=== PATIENT | female | born 1985 | race Caucasian/White ===

== ENCOUNTER 2017-04-21 10:57 | Emergency (ER) | payer OTHER ==
[2017-04-21 11:12] VITALS: BP 130/79; PULSE 71; TEMP 99.1; BMI 29.2
[2017-04-21 12:38] LABS: URINE APPEARANCE CLEAR; URINE BILIRUBIN NEGATIVE (NEGATIVE); URINE BLOOD 1+ (NEGATIVE); URINE COLOR YELLOW; URINE GLUCOSE (UA) NEGATIVE (NEGATIVE); URINE KETONE NEGATIVE (NEGATIVE); URINE LEUK ESTERASE 1+ (NEGATIVE); URINE NITRITE NEGATIVE (NEGATIVE); URINE PROTEIN NEGATIVE (NEGATIVE); URINE UROBILINOGEN NEGATIVE mg/dL (0.2-1.0)
[2017-04-21] MEDS ORDERED: KETOROLAC TROMETHAMINE 60 MG/2 ML VIAL IM ONE (12:40)
--- NOTE | 2017-04-21 12:40 | PDOC ---
History of Present Illness - General Chief Complaint: Back Pain Stated Complaint: BACK PAIN Time Seen by Provider: 04/21/17 12:13 History Source: Patient Exam Limitations: No Limitations - History of Present Illness Initial Comments: 04/21/17 12:35 31 yr female with 1-2 month slow back pain has physical therapy that pt states is not helping. Pt states pain to the right lower back radiates to buttock and down the leg . Pt denies saddle anesthesia, neg urine or bowel complaints. Pt takes motrin for pain with no relief. Occurred: reports: other Severity: reports: moderate Pain Location: reports: back Loss of Consciousness: no loss of consciousness Past History - Past Medical History Allergies/Adverse Reactions: Allergies Allergy/AdvReac Type Severity Reaction Status Date / Time No Known Allergies Allergy Verified 04/21/17 11:08 Home Medications: Ambulatory Orders Cyclobenzaprine HCl [Flexeril -] 5 mg PO TID PRN #21 tablet 04/21/17 Methylprednisolone [Medrol Dose Kory] 4 mg PO ASDIR #21 tablet 04/21/17 Asthma: No Cancer: No Cardiac Disorders: No CVA: No COPD: No Dementia: No Diabetes: No HTN: No Seizures: No Thyroid Disease: No Other medical history: DENIES. - Surgical History Abdominal Surgery: Yes - Psycho/Social/Smoking Cessation Hx Anxiety: No Suicidal Ideation: No Smoking History: Never smoked Hx Alcohol Use: No Drug/Substance Use Hx: No Substance Use Type: None *Physical Exam - Vital Signs Last Vital Signs Temp Pulse Resp BP Pulse Ox 99.1 F 71 19 130/79 99 04/21/17 11:09 04/21/17 11:09 04/21/17 11:09 04/21/17 11:09 04/21/17 11:09 - Physical Exam General Appearance: Yes: Nourished, Appropriately Dressed HEENT: positive: EOMI, OMER, Normal ENT Inspection, TMs Normal, Pharynx Normal Neck: positive: Supple Respiratory/Chest: positive: Lungs Clear, Normal Breath Sounds Cardiovascular: positive: Regular Rhythm, Regular Rate Musculoskeletal: positive: Normal Inspection, Decreased Range of Motion, Other ( right lower paraspinal soft tissue tender reproduced with movement and bending , neg vetebral tenderness). negative: CVA Tenderness, CVA Tenderness (R), CVA Tenderness (L), Vertebral Tenderness Extremity: positive: Normal Capillary Refill, Coldness Integumentary: positive: Normal Color, Dry, Warm Neurologic: positive: Fully Oriented, Alert, Normal Mood/Affect, Normal Response , Motor Strength 5/5 Medical Decision Making - Medical Decision Making 04/21/17 12:39 cc: low back pain right side to buttock and thigh for 2-3 months. 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 pt ambulating freely no acute distress. 04/21/17 19:02 *DC/Admit/Observation/Transfer Diagnosis at time of Disposition: Sciatica Qualifiers: Laterality: right Qualified Code(s): M54.31 - Sciatica, right side - Discharge Dispostion Disposition: HOME Condition at time of disposition: Good - Prescriptions Prescriptions: Cyclobenzaprine HCl [Flexeril -] 5 mg PO TID PRN #21 tablet PRN Reason: Muscle Spasms Methylprednisolone [Medrol Dose Kory] 4 mg PO ASDIR #21 tablet - Referrals Referrals: Linsey Smith MD [Primary Care Provider] - Yo Vela MD [Staff Physician] - - Patient Instructions Additional Instructions: follow with the orthopedist take the medrol dose pack as prescribed take flexeril for muscle spasm as needed follow with the orthopedist as referred below , call today to make appointment for next week return to ER for any weakness inlegs, changes in bowel or bladder dysfunction or any other concerns - Post Discharge Activity Work/School Note: Back to Work
[2017-04-21 12:42] LABS: URINE MUCUS FEW; URINE RBC 21 /hpf (0-3); URINE WBC 3 /hpf (3-5); YEAST RARE
[2017-04-21] MEDS ORDERED: KETOROLAC TROMETHAMINE 60 MG/2 ML VIAL ONE (12:44)
== END 2017-04-21 14:30 | disposition home or self-care (01) ==
LOC: JERFT 10:57
PROC: 3E0233Z Introduction of Anti-inflammatory into Muscle, Percutaneous Approach (ICD-10-PCS; principal; 2017-04-21)
DX: M54.41 Lumbago with sciatica, right side (principal)
CPT/HCPCS: 74176; 81003; 81015; 84703; 96372; 99281-25

== ENCOUNTER 2018-02-01 17:18 | Emergency (ER) | payer OTHER ==
[2018-02-01 17:29] VITALS: BP 130/73; PULSE 88; TEMP 99; BMI 29.2
[2018-02-01] MEDS ORDERED: KETOROLAC TROMETHAMINE 60 MG/2 ML VIAL IM ONE (17:48)
--- NOTE | 2018-02-01 17:53 | PDOC ---
History of Present Illness - General Chief Complaint: Pain Stated Complaint: BACK PAIN Time Seen by Provider: 02/01/18 17:35 History Source: Patient, Family (daughter translated per pt request) - History of Present Illness Pain Location: reports: back. denies: lower extremity Past History - Travel Traveled outside of the country in the last 30 days: No Close contact w/someone who was outside of country & ill: No - Past Medical History Allergies/Adverse Reactions: Allergies Allergy/AdvReac Type Severity Reaction Status Date / Time No Known Allergies Allergy Verified 02/01/18 17:28 Home Medications: Ambulatory Orders Cyclobenzaprine HCl [Flexeril -] 10 mg PO TID #21 tablet 02/01/18 Naproxen [EC-Naprosyn] 500 mg PO BID 15 Days #30 tablet. 02/01/18 Asthma: No Cancer: No Cardiac Disorders: No CVA: No COPD: No Dementia: No Diabetes: No HTN: No Seizures: No Thyroid Disease: No - Surgical History Abdominal Surgery: Yes - Suicide/Smoking/Psychosocial Hx Smoking History: Never smoked Hx Alcohol Use: No Drug/Substance Use Hx: No Substance Use Type: None Trauma Specific PMHX - Complaint Specific PMHX Arthritis: No Review of Systems - Review of Systems Is the patient limited Mongolian proficient: No Cardiac (ROS): No: Chest Pain ABD/GI: No: Abdominal Distended, Abd. Pain w/ defecation, Blood Streaked Bowels , Constipated Musculoskeletal: Yes: Back Pain. No: Muscle Pain, Muscle Weakness Neurological: No: Numbness, Paresthesia, Seizure, Weakness, Unsteady Gait, Dizziness *Physical Exam - Vital Signs Last Vital Signs Temp Pulse Resp BP Pulse Ox 99 F 88 18 130/73 100 02/01/18 17:27 02/01/18 17:27 02/01/18 17:27 02/01/18 17:27 02/01/18 17:27 - Physical Exam General Appearance: Yes: Nourished Respiratory/Chest: positive: Lungs Clear, Normal Breath Sounds Cardiovascular: positive: Regular Rhythm, Regular Rate, S1, S2 Musculoskeletal: positive: Muscle Spasm, Other (+ paraspinal tenderness noted in LS spine) Medical Decision Making - Medical Decision Making 02/01/18 17:52 Patient is a 32-year-old female with chronic back pain. She does have herniated disc noted on MRI about 6 months ago. Patient follows up with her primary care doctor where management consist of chiropractor sessions and ibuprofen when necessary for pain. She presents with back pain 1 week. She denies any bladder or bowel incontinence or any saddle anesthesia. She denies any trauma, UTI symptoms no recent fall. Exam consistent with paraspinal tenderness in the lumbosacral region stable gait no spinal tenderness. pain control ua f/u pcp 02/01/18 19:01 *DC/Admit/Observation/Transfer Diagnosis at time of Disposition: Back pain Qualifiers: Back pain location: low back pain Chronicity: chronic Back pain laterality: unspecified Sciatica presence: with sciatica Sciatica laterality: sciatica laterality unspecified Qualified Code(s): M54.40 - Lumbago with sciatica, unspecified side - Discharge Dispostion Disposition: HOME Condition at time of disposition: Stable Admit: No - Prescriptions Prescriptions: Cyclobenzaprine HCl [Flexeril -] 10 mg PO TID #21 tablet Naproxen [EC-Naprosyn] 500 mg PO BID 15 Days #30 tablet.dr - Referrals Referrals: Linsey Smith MD [Primary Care Provider] - - Patient Instructions Printed Discharge Instructions: Low Back Pain Additional Instructions: I discussed the physical exam findings, ancillary test results and final diagnoses with the patient. I answered all of the patient's questions. The patient was satisfied with the care received and felt comfortable with the discharge plan and treatment plan. The patient will call their primary care physician within 24 hours to arrange follow-up and will return to the Emergency Department with any new, persistant or worsening symptoms. - Post Discharge Activity
[2018-02-01] MEDS ORDERED: KETOROLAC TROMETHAMINE 60 MG/2 ML VIAL ONE (17:58)
[2018-02-01 18:03] LABS: URINE APPEARANCE SLCLOUDY; URINE BILIRUBIN NEGATIVE (<2.0 mg/dL); URINE COLOR LTYELLOW; URINE GLUCOSE (UA) NEGATIVE (NEGATIVE); URINE KETONE TRACE (NEGATIVE); URINE NITRITE NEGATIVE (NEGATIVE); URINE PROTEIN NEGATIVE (NEGATIVE); URINE UROBILINOGEN NEGATIVE mg/dL (0.2-1.0)
[2018-02-01 18:06] LABS: URINE LEUK ESTERASE 2+ (NEGATIVE)
[2018-02-01 18:11] LABS: EPI CELLS RARE /HPF (FEW); URINE BACTERIA RARE /hpf (NONE SEEN); URINE HYALINE CAST 3 /lpf; URINE MUCUS RARE
== END 2018-02-01 19:02 | disposition home or self-care (01) ==
LOC: JERFT 17:18
PROC: 3E0233Z Introduction of Anti-inflammatory into Muscle, Percutaneous Approach (ICD-10-PCS; principal; 2018-02-01)
DX: M54.41 Lumbago with sciatica, right side (principal)
CPT/HCPCS: 81003; 81015; 96372; 99281-25

== ENCOUNTER 2020-07-04 16:33 | Emergency (ER) | payer OTHER ==
[2020-07-04 16:38] VITALS: BP 139/82; PULSE 71; TEMP 98.8; BMI 28.8
--- NOTE | 2020-07-04 16:38 | PDOC ---
Rapid Medical Evaluation Time Seen by Provider: 07/04/20 16:35 Medical Evaluation: Allergies Allergy/AdvReac Type Severity Reaction Status Date / Time No Known Allergies Allergy Verified 02/01/18 17:28 07/04/20 16:35 Pt presents for evaluation of chest pain and palpitations starting last night. She states the pain moved down the L arm last night. Exam: RRR, breathing comfortably on room air Orders: EKG, labs Pt to proceed to the ER for evaluation Discharge Disposition - Diagnosis Chest pain Qualifiers: Chest pain type: unspecified Qualified Code(s): R07.9 - Chest pain, unspecified - Referrals - Patient Instructions - Post Discharge Activity
--- NOTE | 2020-07-04 17:04 | PDOC ---
History of Present Illness - General Chief Complaint: Chest Pain Stated Complaint: CHEST PAINS Time Seen by Provider: 07/04/20 16:35 History Source: Patient - History of Present Illness Presenting Symptoms: Chest Pain Timing/Duration: reports: intermittent Past History - Medical History Allergies/Adverse Reactions: Allergies Allergy/AdvReac Type Severity Reaction Status Date / Time No Known Allergies Allergy Verified 07/04/20 17:41 Asthma: No Cancer: No Cardiac Disorders: No CVA: No COPD: No Dementia: No Diabetes: No HTN: No Seizures: No Thyroid Disease: No - Surgical History Abdominal Surgery: Yes - Reproductive History Is Patient Now?: No - Immunization History Immunization Up to Date: No - Psycho-Social/Smoking History Smoking History: Never smoked Information on smoking cessation initiated: No - Substance Abuse Hx (Audit-C & DAST Scrn) How often the patient has a drink containing alcohol: Never Score: In Men: 4 or > Positive; In Women: 3 or > Positive: 0 Screen Result (Pos requires Nsg. Audit-10AR): Negative In the last yr the pt used illegal drug/Rx for NonMed reason: No Score: Yes response is considered Positive: 0 Screen Result (Positive result requires Nsg. DAST-10): Negative Cardiac Specific PMH - Complaint Specific PMHX Pacemaker: No Review of Systems - Review of Systems Constitutional: No: Chills, Fever Respiratory: No: Cough, Shortness of Breath Cardiac (ROS): Yes: Chest Pain. No: Lightheadedness, Palpitations, Syncope *Physical Exam - Vital Signs Last Vital Signs Temp Pulse Resp BP Pulse Ox 98.8 F 71 20 139/82 100 07/04/20 16:35 07/04/20 16:35 07/04/20 16:35 07/04/20 16:35 07/04/20 16:35 - Physical Exam General Appearance: Yes: Appropriately Dressed. No: Apparent Distress HEENT: positive: Normal Voice Neck: positive: Supple Respiratory/Chest: positive: Lungs Clear, Normal Breath Sounds. negative: Respiratory Distress Cardiovascular: positive: Regular Rate, S1, S2 Integumentary: positive: Dry, Warm Neurologic: positive: Fully Oriented, Alert, Normal Mood/Affect Heart Score/ECG Review - ECG Intrepretation Comment:: 07/04/20 17:49 Twelve-lead EKG was performed and reviewed by me. There is normal sinus rhythm with a normal rate. The axis is normal. The intervals are normal. There are no ST or T wave abnormalities. Impression: Normal twelve-lead EKG Medical Decision Making - Medical Decision Making 07/04/20 16:53 34 yo F, no sig hx, here w/ L sided CP that radiates to neck and down L arm, "pinching" in nature, 8/10, on and off, lasting for seconds, x 2 days. No worsening factors. No h/o similar pain. Pt denies palpitations to me, as recorded at triage and no SOB, diaphoresis, n/v. No RF for DVT/PE. No cough, f/c. Denies tob or illicit drug use. No sig fmhx. No CP currently see exam CP Since improved No RF for CAD No illicit drugs No sig fmhx PERCs out No infectious sxs Stable w/ clear chest/lungs -EKG -anticipate dc w/ PMD f/u as needed 07/04/20 17:48 EKG wnl. Pt pain free upon discharge. To f/u with PMD and return to ED as needed Discharge - Discharge Information Problems reviewed: Yes Clinical Impression/Diagnosis: Chest pain Qualifiers: Chest pain type: unspecified Qualified Code(s): R07.9 - Chest pain, unspecified Condition: Good Disposition: HOME - Follow up/Referral Referrals: Shukri Dorsey MD [Primary Care Provider] - - Patient Discharge Instructions Patient Printed Discharge Instructions: DI for Atypical Chest Pain Additional Instructions: Your EKG was normal here If your pain continues, please follow up with your PMD - Post Discharge Activity
--- NOTE | 2020-07-05 08:47 | EKG ---
Test Reason : Blood Pressure : / mmHG Vent. Rate : 069 BPM Atrial Rate : 069 BPM P-R Int : 184 ms QRS Dur : 092 ms QT Int : 394 ms P-R-T Axes : 061 -06 020 degrees QTc Int : 422 ms NORMAL SINUS RHYTHM NORMAL ECG NO PREVIOUS ECGS AVAILABLE Confirmed by Jordy Jacobson MD ([id number]) on 07/05/2020 8:46:44 AM Referred By: Confirmed By:Jordy Jacobson MD
== END 2020-07-04 17:30 | disposition home or self-care (01) ==
LOC: JER 16:33
DX: R07.9 Chest pain, unspecified (principal)
CPT/HCPCS: 93005; 93010; 99284-25

== ENCOUNTER 2021-07-02 14:06 | Emergency (ER) | payer OTHER ==
[2021-07-02 14:27] VITALS: BP 127/76; PULSE 77; TEMP 98.7; BMI 29.2
[2021-07-02] MEDS ORDERED: KETOROLAC TROMETHAMINE 30 MG/1 ML VIAL IM ONE (15:37)
[2021-07-02] MEDS ORDERED: diphenhydrAMINE HCL 25 MG CAPSULE (FP) PO ONE ×2 (15:37→15:39)
[2021-07-02] MEDS ORDERED: KETOROLAC TROMETHAMINE 30 MG/1 ML VIAL ONE (15:39)
== END 2021-07-02 17:10 | disposition home or self-care (01) ==
LOC: JERFT 14:06
PROC: 3E0333Z Introduction of Anti-inflammatory into Peripheral Vein, Percutaneous Approach (ICD-10-PCS; principal; 2021-07-02)
DX: I88.0 Nonspecific mesenteric lymphadenitis (principal); N83.01 Follicular cyst of right ovary
CPT/HCPCS: 99285-25

== ENCOUNTER 2021-09-24 16:18 | Emergency (ER) | payer OTHER ==
[2021-09-24 16:24] VITALS: BP 128/84; PULSE 78; TEMP 97.9; BMI 30.5
[2021-09-25 14:07] LABS: SARS-CoV-2 NAA Not Detected (Not Detected)
== END 2021-09-24 18:57 | disposition home or self-care (01) ==
LOC: JER 16:18
DX: J06.9 Acute upper respiratory infection, unspecified (principal); J09.X2 Influenza due to identified novel influenza A virus with other respiratory manifestations
CPT/HCPCS: 71046-TC-FY; 87804; 99283-25; C9803; U0003; U0005

== ENCOUNTER → 2021-10-16 | Day surgery (SDC) | payer OTHER | END | disposition home or self-care (01) | LOC: JRADIR 09:43 | PROVIDERS: ATTEND Otolaryngology | PROC: 0GJK3ZZ Inspection of Thyroid Gland, Percutaneous Approach (ICD-10-PCS; principal; 2021-10-16) | PROC: BG44ZZZ Ultrasonography of Thyroid Gland (ICD-10-PCS; 2021-10-16) | DX: E04.1 Nontoxic single thyroid nodule (principal) | CPT/HCPCS: 10005; 76536-TC ==

== ENCOUNTER 2021-12-19 13:19 | Emergency (ER) | payer OTHER ==
[2021-12-19 13:36] VITALS: TEMP 98.7; BMI 32.1
[2021-12-19] MEDS ORDERED: FAMOTIDINE 20 MG/50 ML IVPB 20 MG/50 ML MG IVPB ONE ×2 (13:40→13:49)
[2021-12-19] MEDS ORDERED: methylPREDNISolone NA SUCC 125 MG/2 ML VIAL IVPB ONE (13:40)
[2021-12-19] MEDS ORDERED: methylPREDNISolone NA SUCC 125 MG/2 ML VIAL ONE (13:49)
[2021-12-19 17:53] VITALS: BP 116/69; PULSE 77
== END 2021-12-19 18:08 | disposition home or self-care (01) ==
LOC: JER 13:19
PROC: 3E033GC Introduction of Other Therapeutic Substance into Peripheral Vein, Percutaneous Approach (ICD-10-PCS; principal; 2021-12-19)
DX: T78.40XA Allergy, unspecified, initial encounter (principal)
CPT/HCPCS: 99284-25

== ENCOUNTER 2021-12-20 05:09 | Day surgery (SDC) | payer OTHER ==
[2021-12-17 11:01] VITALS: BMI 32.1
[2021-12-20] MEDS ORDERED: ceFAZolin SODIUM 1 GM VIAL IVPB ONE (07:25)
[2021-12-20] MEDS ORDERED: LIDOCAINE HCL 1% EPINEPHRINE 1:200,000 30 ML VIAL (PF) ONE (07:25)
[2021-12-20] MEDS ORDERED: ACETAMINOPHEN INJECTION 100 ML IVPB ONE (09:45)
[2021-12-20] MEDS ORDERED: THROMBIN (BOVINE) 5,000 UNIT VIAL TP ONE (10:12)
[2021-12-20] MEDS ORDERED: THROMBIN (BOVINE) 20,000 UNIT VIAL TP ONE (10:12)
[2021-12-20] MEDS ORDERED: MICROFIBRILLAR COLLAGEN 1 GM EACH NR ONE (10:21)
[2021-12-20] MEDS ORDERED: BENZOIN/ALOE VERA/STORAX/TOLU 58 ML BOTTLE TP ONE (10:22)
[2021-12-20] MEDS ORDERED: ONDANSETRON 4 MG/2 ML VIAL IVPUSH PRN (10:29)
[2021-12-20] MEDS ORDERED: oxyCODONE HCL 5 MG TABLET PO PRN (10:29)
[2021-12-20] MEDS ORDERED: LACTATED RINGERS SOLUTION 1,000 ML IV SCH (10:30)
[2021-12-20 14:24] VITALS: BP 113/73; PULSE 100; TEMP 98.6
== END 2021-12-20 14:20 | disposition home or self-care (01) ==
LOC: JASU-SURG 05:09
PROVIDERS: ATTEND Otolaryngology
PROC: 0GTG0ZZ Resection of Left Thyroid Gland Lobe, Open Approach (ICD-10-PCS; principal; 2021-12-20 08:00)
DX: E04.2 Nontoxic multinodular goiter (principal)
CPT/HCPCS: 81025; 88307-TC; 94760

== ENCOUNTER 2022-07-29 06:19 | Day surgery (SDC) | payer SELFPAY ==
[2022-07-25 12:51] VITALS: BMI 29.8
[2022-07-29] MEDS ORDERED: BUPIVACAINE HCL/PF 0.25% (2.5MG/ML) 10 ML VIAL ONE ×2 (07:24→08:31)
[2022-07-29] MEDS ORDERED: BACITRACIN 15 GM TUBE TOPICAL OINTMENT ONE (07:24)
[2022-07-29] MEDS ORDERED: EPINEPHrine/PF 1 MG/1 ML (1:1,000) AMPULE ONE (07:24)
[2022-07-29] MEDS ORDERED: BUPIVACAINE HCL/PF 2.5 MG/ML - 30 ML VIAL IJ ONE ×2 (07:24→08:31)
[2022-07-29] MEDS ORDERED: BUPIVACAINE LIPOSOME/PF (EXPAREL) 266 MG/20 ML VIAL ONE (07:26)
[2022-07-29] MEDS ORDERED: HEPARIN NA (PORCINE) 5,000 UNITS/ML 1ML VIAL SQ ONE (08:00)
[2022-07-29] MEDS ORDERED: PROPOFOL 20 ML ONE (08:02)
[2022-07-29] MEDS ORDERED: MIDAZOLAM HCL 2 MG/2 ML SINGLE DOSE VIAL ONE (08:02)
[2022-07-29] MEDS ORDERED: ROCURONIUM BROMIDE 50 MG/5 ML SYRINGE ONE ×2 (08:02→11:32)
[2022-07-29] MEDS ORDERED: HEPARIN NA (PORCINE) 5,000 UNITS/ML 1ML VIAL ONE (08:06)
[2022-07-29] MEDS ORDERED: DEXAMETHASONE SOD PHOSPHATE 4 MG/1 ML VIAL ONE (08:08)
[2022-07-29] MEDS ORDERED: LIDOCAINE HCL 1%, 10 MG/ML (20ML VIAL) ONE (08:31)
[2022-07-29] MEDS ORDERED: DEXAMETHASONE SOD PHOSPHATE 4 MG/1 ML VIAL IVPUSH ONE (09:46)
[2022-07-29] MEDS ORDERED: BUPIVACAINE HCL/PF 0.25% (2.5MG/ML) 10 ML VIAL IJ ONE (09:46)
[2022-07-29] MEDS ORDERED: NITROGLYCERIN 2% OINTMENT - 1GM PACKET TD ONE (12:24)
[2022-07-29] MEDS ORDERED: GLYCOPYRROLATE 0.2 MG/1 ML VIAL ONE ×2 (12:30)
[2022-07-29] MEDS ORDERED: NEOSTIGMINE METHYLSULFATE 0.5 MG/1 ML - 10 ML MDV ONE (12:30)
[2022-07-29] MEDS ORDERED: ONDANSETRON 4 MG/2 ML VIAL IVPUSH PRN (13:16)
[2022-07-29] MEDS ORDERED: PROMETHAZINE HCL 25 MG/1 ML VIAL IVPUSH PRN (13:16)
[2022-07-29] MEDS ORDERED: oxyCODONE HCL 5 MG TABLET PO PRN ×3 (13:16→17:54)
[2022-07-29] MEDS ORDERED: LACTATED RINGERS SOLUTION 1,000 ML IV SCH (13:30)
[2022-07-29] MEDS ORDERED: FENTANYL CITRATE/PF 50 MCG/ML VIAL ONE ×2 (13:38→14:14)
[2022-07-29] MEDS ORDERED: ceFAZolin SODIUM 1 GM VIAL ONE (14:31)
[2022-07-29] MEDS: CEFAZOLIN 1 GM in DEXTROSE 5%-WATER - 50 ML IVPB SCH ×2 (14:36→21:34)
[2022-07-29 16:53] VITALS: RESP 17
[2022-07-29] MEDS: ONDANSETRON 4 MG/2 ML VIAL IVPB PRN (18:51)
[2022-07-29] MEDS ORDERED: ACETAMINOPHEN 1000 MG/100 ML BAG IVPB ONE (23:50)
[2022-07-30] MEDS: CEFAZOLIN 1 GM in DEXTROSE 5%-WATER - 50 ML IVPB SCH ×2 (03:30→09:54)
[2022-07-30] MEDS ORDERED: IBUPROFEN 800 MG/8 ML IJ IVPB ONE (03:44)
[2022-07-30] MEDS ORDERED: HYDROmorphone HCl 2 MG/ML VIAL IVPUSH ONE (03:46)
[2022-07-30] MEDS: ONDANSETRON 4 MG/2 ML VIAL IVPB PRN (04:09)
[2022-07-30 06:56] VITALS: TEMP 98.1
[2022-07-30] MEDS ORDERED: HEPARIN NA (PORCINE) 5,000 UNITS/ML 1ML VIAL SQ SCH (08:00)
[2022-07-30 12:47] VITALS: BP 120/62; PULSE 71
== END 2022-07-30 12:53 | disposition home or self-care (01) ==
LOC: FASUSAT 06:19 → FM/S 15:09 → FASUSAT 07-30 12:53
PROVIDERS: ATTEND Plastic Surgery
PROC: 0J080ZZ Alteration of Abdomen Subcutaneous Tissue and Fascia, Open Approach (ICD-10-PCS; principal; 2022-07-29 08:50)
PROC: 0J083ZZ Alteration of Abdomen Subcutaneous Tissue and Fascia, Percutaneous Approach (ICD-10-PCS; 2022-07-29 08:50)
DX: Z41.1 Encounter for cosmetic surgery (principal); M95.8 Other specified acquired deformities of musculoskeletal system
CPT/HCPCS: 81025; 94760; J1644

== ENCOUNTER 2023-11-19 00:51 | Emergency (ER) | payer OTHER ==
[2023-11-19 01:11] VITALS: TEMP 98.8; BMI 25.7
[2023-11-19] MEDS ORDERED: KETOROLAC TROMETHAMINE 30 MG/1 ML VIAL ONE (01:24)
[2023-11-19] MEDS ORDERED: morphine SULFATE 4 MG/ML VIAL ONE (01:24)
[2023-11-19] MEDS ORDERED: ONDANSETRON 4 MG/2 ML VIAL ONE (01:25)
[2023-11-19] MEDS: SODIUM CHLORIDE 1,000 ML IV ONE (01:34)
[2023-11-19] MEDS: morphine CARPU-JECT 4 MG/1 ML DISP.SYRIN IVPUSH ONE (01:34)
[2023-11-19] MEDS: ONDANSETRON 4 MG/2 ML VIAL IVPUSH ONE (01:34)
[2023-11-19] MEDS: KETOROLAC TROMETHAMINE 30 MG/1 ML VIAL IVPUSH ONE (01:35)
[2023-11-19 02:08] LABS: URINE APPEARANCE CLEAR; URINE BILIRUBIN NEGATIVE (NEGATIVE); URINE COLOR YELLOW; URINE GLUCOSE (UA) NEGATIVE (NEGATIVE); URINE KETONE NEGATIVE (NEGATIVE); URINE LEUK ESTERASE NEGATIVE (NEGATIVE); URINE NITRITE NEGATIVE (NEGATIVE); URINE PROTEIN NEGATIVE (NEGATIVE); URINE UROBILINOGEN 0.2 mg/dL (0.2-1.0)
[2023-11-19 02:09] LABS: HEMATOCRIT 46.3 % (32.4-45.2); HEMOGLOBIN 15.7 GM/dL (10.7-15.3); MCH 26.8 pg (25.7-33.7); MCHC 33.8 g/dl (32.0-36.0); MEAN CELL VOLUME 79.2 fl (80-96); MEAN PLT VOLUME 9.8 fl (7.5-11.1); PLATELET COUNT 232 10^3/uL (134-434); RBC 5.84 M/mm3 (3.60-5.2); RDW 13.7 % (11.6-15.6); WHITE BLOOD COUNT 8.5 K/mm3 (4.0-10.0)
[2023-11-19 02:27] LABS: POTASSIUM 3.1 mmol/L (3.5-5.1)
[2023-11-19 02:29] LABS: ALBUMIN 4.1 g/dl (3.4-5.0); BLOOD UREA NITROGEN 14.9 mg/dL (7-18); CALCIUM 8.9 mg/dL (8.5-10.1)
[2023-11-19 02:32] LABS: CREATININE 0.7 mg/dL (0.55-1.3)
[2023-11-19 02:34] LABS: BILIRUBIN,TOTAL 0.5 mg/dL (0.2-1); TOT PROT 7.5 g/dl (6.4-8.2)
[2023-11-19 05:05] VITALS: BP 100/60; PULSE 74; RESP 16
== END 2023-11-19 06:49 | disposition home or self-care (01) ==
LOC: FER 00:51
PROC: 3E033NZ Introduction of Analgesics, Hypnotics, Sedatives into Peripheral Vein, Percutaneous Approach (ICD-10-PCS; principal; 2023-11-19)
PROC: 3E033GC Introduction of Other Therapeutic Substance into Peripheral Vein, Percutaneous Approach (ICD-10-PCS; 2023-11-19)
PROC: 3E033GC Introduction of Other Therapeutic Substance into Peripheral Vein, Percutaneous Approach (ICD-10-PCS; 2023-11-19)
PROC: 3E0337Z Introduction of Electrolytic and Water Balance Substance into Peripheral Vein, Percutaneous Approach (ICD-10-PCS; 2023-11-19)
DX: R10.31 Right lower quadrant pain (principal); R11.2 Nausea with vomiting, unspecified
CPT/HCPCS: 36415; 74176-TC; 80053; 81003; 81025; 85027; 99284-25

== ENCOUNTER 2024-06-23 20:34 | Emergency (ER) | payer OTHER ==
[2024-06-23 20:41] VITALS: BP 133/82; PULSE 73; RESP 20; TEMP 98.8; BMI 28.3
[2024-06-23] MEDS ORDERED: AMOXICILLIN 250 MG CAPSULE ONE (21:22)
[2024-06-23] MEDS ORDERED: ACETAMINOPHEN 500 MG TABLET (FP) ONE (21:22)
[2024-06-23] MEDS: ACETAMINOPHEN 500 MG TABLET (FP) PO ONE (21:26)
[2024-06-23] MEDS: AMOXICILLIN 500 MG CAPSULE (FP) PO ONE (21:26)
[2024-06-24 00:07] LABS: HIV INTERPRETATION NEGATIVE (NEGATIVE)
== END 2024-06-23 21:34 | disposition home or self-care (01) ==
LOC: FER 20:34
DX: J01.91 Acute recurrent sinusitis, unspecified (principal); R09.81 Nasal congestion; R51.9 Headache, unspecified; Z20.822 Contact with and (suspected) exposure to COVID-19
CPT/HCPCS: 0241U-QW; 36415; 86803; 87389; 99283-25